=== PATIENT | female | born 1990 | race Caucasian/White ===

== ENCOUNTER 2020-06-11 18:08 | Emergency (ER) | payer SELFPAY ==
--- NOTE | ~2020-06-11 | XR_ITS ---
XR chest 1V portable DATE: 06/11/2020 18:38 INDICATION: Cough, fever, shortness of breath TECHNIQUE: Portable AP chest on 06/21/2020 at 1832 hours COMPARISON: 10/03 PA and lateral chest FINDINGS: Normal heart size. No hilar or mediastinal enlargement. No pulmonary infiltrate or consolidation, pleural effusion, pulmonary vascular congestion or pneumoth orax. IMPRESSION: No active cardiopulmonary disease Reviewed, dictated and finalized at location A. [employer] SERV[employer] ASSISTANT
[2020-06-11 18:13] VITALS: BP 141/83; PULSE 108; RESP 18; TEMP 36.7; O2SAT 100
--- NOTE | 2020-06-11 18:22 | ECG_ITS ---
Measurements Intervals [place] Rate: 91 P: 41 MN: 140 QRS: 28 QRSD: 86 T: 31 QT: 337 QTc: 417 Interpretive Statements SINUS RHYTHM BASELINE ARTIFACT- I, II, III, AVR, AVL, AVF, V1-V3 NORMAL ECG Electronically Signed On 06-11-2020 20:07:52 [employer] PLATER by Hammad Lawler D.O.
[2020-06-11 18:51] LABS: Basophils Percent Auto 0.4 % (0.2-1.2); Eosinophils Absolute Auto 0.2 K/mm3 (0-0.3); Eosinophils Percent Auto 2.7 % (0-4.4); Hematocrit 36.1 % (37.0-47.0); Hemoglobin 11.4 g/dL (12.0-15.0); Immature Granulocyte Absolute 0.02 K/mm3 (0.00-0.031); Immature Granulocyte Percent A 0.3 % (0-0.5); Lymphocytes Absolute Auto 2.01 K/mm3 (0.9-3.2); Mean Corpuscular HGB Conc 31.6 g/dl (32-36); Mean Corpuscular Volume 72.8 fl (80-100); Monocytes Absolute Auto 0.7 K/mm3 (0.1-0.6); Monocytes Percent Auto 9.7 % (2.6-8.5); Neutrophils Absolute Auto 3.8 K/mm3 (1.3-6.7); Neutrophils Percent Auto 56.9 % (45.5-73.1); Platelet Count Result 357 k/mm3 (150-375); Red Blood Count 4.96 M/mm3 (4.2-5.4); Red Cell Distribution Width 14.9 % (11.5-14.5); White Blood Count 6.7 K/mm3 (4.5-10.0)
--- NOTE | 2020-06-11 18:51 | ED.GENADULT ---
HPI - General Adult General Chief complaint: Unspecified Stated complaint: I Can't Breath Family Has COVID Time Seen by Provider: 06/11/20 18:21 Source: patient Mode of arrival: ambulatory Limitations: no limitations History of Present Illness HPI narrative: Patient is a 29-year-old female who presents to emergency department with tightness of the chest with productive cough congestion rhinorrhea patient notes that she has multiple sick family members currently at home with Covid. Patient notes she has had some loose stools. Patient denies vomiting notes that she has had some fever Related Data Allergies Allergy/AdvReac Type Severity Reaction Status Date / Time nitrofurantoin Allergy Unknown swelling Verified 05/08/19 13:59 in hands and feet Sulfa (Sulfonamide Allergy Unknown Verified 10/27/17 15:56 Antibiotics) Review of Systems Review of Systems: All systems reviewed & are unremarkable except as noted in HPI and below PMFSH Social History Social History (Updated 06/11/20 @ 18:54 by Cristhian Gore PA-C) Smoking status: Never smoker Alcohol intake: current Exam Narrative: Exam Narrative: GENERAL: Well-appearing, well-nourished, and in no acute distress. HEAD: Normocephalic, atraumatic. EYES: PERRLA and EOMI. ENT: Nares clear, no rhinorrhea or epistaxis. Mucous membranes moist. NECK: Supple. No adenopathy or masses. CHEST: Clear to auscultation. No respiratory distress. No wheezes rales or rhonchi HEART: Regular rate and rhythm. No murmur heard. EXTREMITIES: Normal range of motion. No edema. SKIN: Warm, dry, no rash. NEURO: No focal deficits. Alert and oriented x3. PSYCH: Normal mood and affect. Course Course Emergency Course: Patient in the room aware of case findings treatment plan diagnosis will be tested for Covid no pneumonia normal vital signs advised to follow with primary care for Covid results and to self quarantine Vital Signs Vital signs: Vital Signs Temperature 98.0 F 06/11/20 18:13 Pulse Rate 108 H 06/11/20 18:13 Respiratory Rate 18 06/11/20 18:13 Blood Pressure 141/83 H 06/11/20 18:13 Pulse Oximetry 100 06/11/20 18:13 Temperature 98.0 F 06/11/20 18:13 Pulse Rate 108 H 06/11/20 18:13 Respiratory Rate 18 06/11/20 18:13 Blood Pressure 141/83 H 06/11/20 18:13 Pulse Oximetry 100 06/11/20 18:13 Medical Decision Making MDM Narrative Medical decision making narrative: Patient with upper respiratory symptoms consistent with COVID-19 advised to self quarantine until she has received her results from her primary care doctor and to self quarantine until she has received her results Vital Signs Vital Signs: Vital Signs Temperature 98.0 F 06/11/20 18:13 Pulse Rate 108 H 06/11/20 18:13 Respiratory Rate 18 06/11/20 18:13 Blood Pressure 141/83 H 06/11/20 18:13 Pulse Oximetry 100 06/11/20 18:13 Temperature 98.0 F 06/11/20 18:13 Pulse Rate 108 H 06/11/20 18:13 Respiratory Rate 18 06/11/20 18:13 Blood Pressure 141/83 H 06/11/20 18:13 Pulse Oximetry 100 06/11/20 18:13 Lab Data Result diagrams: 06/11/20 18:37 06/11/20 18:37 Labs: Lab Results 06/11/20 06/11/20 Range/Units 18:37 18:37 WBC Pending RBC Pending Hgb Pending Hct Pending MCV Pending MCH Pending MCHC Pending RDW Pending Plt Count Pending MPV Pending Immature Gran % (Auto) Pending Neut % (Auto) Pending Lymph % (Auto) Pending [place] % (Auto) Pending Eos % (Auto) Pending Baso % (Auto) Pending Lymph # (Auto) Pending [place] # (Auto) Pending Eos # (Auto) Pending Baso # (Auto) Pending Abs Immat Gran (auto) Pending Absolute Neuts (auto) Pending Absolute Nucleated RBC Pending Nucleated RBC % Pending Sodium Pending Potassium Pending Chloride Pending Carbon Dioxide Pending Anion Gap Pending BUN Pendi
[2020-06-11 19:04] LABS: Anion Gap 11 mmol/L (8-16); Blood Urea Nitrogen 7 mg/dL (7-17); Calcium 9.1 mg/dL (8.4-10.2); Carbon Dioxide 23 mmol/L (22-30); Chloride 106 mmol/L (98-107); Estimated CRCL calculation 121 ml/min; Estimated Glomerular Filt Rate > 60; Glucose 134 mg/dL (65-105); Potassium 3.8 mmol/L (3.4-5.0); Sodium 140 mmol/L (137-145)
[2020-06-11 19:42] VITALS: BP 115/81; PULSE 95; RESP 16; TEMP 36.8; O2SAT 100
== END 2020-06-11 19:43 | disposition home or self-care (01) ==
LOC: ANHED 19:09
PROVIDERS: Emergency Provider Emergency Medicine; PCP Family Medicine
DX: J06.9 Acute upper respiratory infection, unspecified (principal); Z20.828 Contact with and (suspected) exposure to other viral communicable diseases
CPT/HCPCS: 36415; 71045; 80048; 81025; 85025; 93005; 99284

== ENCOUNTER 2021-04-30 07:02 | Emergency (ER) | payer SELFPAY ==
--- NOTE | ~2021-04-30 | XR_ITS ---
EXAMINATION: XR chest 1V portable DATE: 04/30/2021 08:14 INDICATION: Shortness of breath. Possible COVID TECHNIQUE: frontal view of the chest was obtained. COMPARISON: Chest radiograph dated 06/11/2020 FINDINGS: The lungs remain clear with no focal airspace opacities, pulmonary edema, pleural effusion or pneumot horax. The cardiomediastinal silhouette is normal. Visualized bones and soft tissues are unremarkable . IMPRESSION: 1. Normal chest radiograph. Reviewed, dictated and finalized at location A. IMPRESSION: 1. Normal chest radiograph.
--- NOTE | 2021-04-30 07:16 | ED.URI ---
HPI - URI/Sore Throat General Chief Complaint: Upper Respiratory Infection Stated Complaint: COVID symptoms x 3 days Time Seen by Provider: 04/30/21 07:16 Source: patient Mode of arrival: ambulatory Limitations: no limitations History of Present Illness HPI Narrative: Patient is a 30-year-old previously healthy female who presents for evaluation of cough, right-sided chest pain, intermittent fever. Patient states she has felt unwell over the past 5 days. Patient reports chest pain that has been sharp and shooting in nature at times over the right chest without radiation to the back, jaw, neck, upper abdomen. No associated nausea or vomiting. She has had a dry cough without shortness of breath. No diaphoresis. She has had some low-grade fevers and myalgias. Patient son has been exposed to Covid at school, he is not on any quarantine protocol currently. No other sick contacts. Related Data Allergies Allergy/AdvReac Type Severity Reaction Status Date / Time nitrofurantoin Allergy Unknown swelling Verified 04/30/21 07:33 in hands and feet Sulfa (Sulfonamide Allergy Unknown Hives Verified 04/30/21 07:33 Antibiotics) Review of Systems Review of Systems: CONSTITUTIONAL: Reports fever and chills EYES: Denies visual changes, redness, or discharge. ENT: Reports rhinorrhea and congestion CARDIOVASCULAR: Reports right-sided chest pain RESPIRATORY: Reports cough GASTROINTESTINAL: Denies abdominal pain, nausea, vomiting, or diarrhea. GENITOURINARY: Denies dysuria or hematuria. SKIN: Denies rash or itching. MUSCULOSKELETAL: Denies back pain, joint pain, reports nonspecific myalgias NEUROLOGIC: Denies headache, numbness, or weakness. [facility] Social History Social History Smoking status: Never smoker Alcohol intake: current Exam Narrative: GENERAL: Awake, alert, conversant HEAD: Normocephalic, atraumatic. EYES: PERRLA and EOMI. ENT: Nares clear, no rhinorrhea or epistaxis. Mucous membranes moist. + Rhinorrhea NECK: Supple. CHEST: No respiratory distress, breathing even and non labored, lungs are clear to auscultation bilaterally HEART: Regular rate, sinus rhythm ABDOMEN:Non distended, non tender EXTREMITIES: Normal range of motion. No edema. No calf pain. SKIN: Warm, dry, no rash. NEURO:No focal deficits. Alert and oriented x3 Course Vital Signs Vital signs: Vital Signs Temperature 36.8 C 04/30/21 07:20 Pulse Rate 92 04/30/21 07:20 Respiratory Rate 20 04/30/21 07:20 Blood Pressure 120/90 04/30/21 07:20 Pulse Oximetry 97 04/30/21 07:20 Temperature 36.8 C 04/30/21 07:20 Pulse Rate 91 04/30/21 08:02 Respiratory Rate 19 04/30/21 08:02 Blood Pressure 120/90 04/30/21 07:20 Pulse Oximetry 97 04/30/21 07:20 MDM - URI/Sore Throat MDM Narrative Medical decision making narrative: Patient presented for evaluation of right-sided chest pain in the setting of viral symptoms with rhinorrhea, cough and congestion. Patient will be swabbed for Covid. Patient's EKG and labs are without significant high risk changes. Cardiac risk factors reviewed. Patient is felt low risk for ACS and reasonable for further risk stratification testing as an outpatient. Troponin is not elevated, given pain has been present over the past 4 days, I would suspect that if this were myocarditis or pericarditis this would be abnormal at this point. Pain was not sudden or maximal or onset without tearing or ripping quality. No other signs or symptoms to suggest aortic dissection. A low risk well's criteria is noted, PE is felt to be unlikely. Patient does not qualify for D-dimer based on PERC criteria. No tachycardia, hypoxia. Patient is not on control. No pneumonia seen on evaluation today. Oxygen are normal. Patient is felt to be a reasonable candidate for continued evaluation as an outpatient. Differential Diagnosis Differential diagnosis: Likely upp
[2021-04-30 07:20] VITALS: BP 120/90; PULSE 92; RESP 20; TEMP 36.8; O2SAT 97
--- NOTE | 2021-04-30 07:39 | ECG_ITS ---
Measurements Intervals [place] Rate: 65 P: 22 WI: 170 QRS: -5 QRSD: 86 T: -9 QT: 389 QTc: 406 Interpretive Statements SINUS RHYTHM WITH SINUS ARRHYTHMIA INCOMPLETE RIGHT BUNDLE BRANCH BLOCK LOW QRS VOLTAGE IN PRECORDIAL LEADS BORDERLINE T WAVE ABNORMALITY- INFERIOR LEADS BASELINE ARTIFACT- II, III, AVR, AVF, V1, V3-V6 BORDERLINE ECG Electronically Signed On 04-30-2021 12:08:51 CDT by Hammad Lawler D.O.
[2021-04-30 07:51] VITALS: PULSE 102; RESP 18
[2021-04-30] MEDS: ALBUTEROL SULFATE NEB 2.5 MG/0.5 ML INH 5 MG INHALATION (07:51)
[2021-04-30] MEDS: IPRATROPIUM BR 0.02% INH SOLN 0.5 MG/2.5 ML VIAL INHALATION (07:51)
[2021-04-30 08:02] VITALS: PULSE 91; RESP 19
[2021-04-30] MEDS: SODIUM CHLORIDE 0.9% IV 1,000 ML 999 ML IV CONT (08:02)
[2021-04-30] MEDS: ASPIRIN 81 MG CHEWABLE TABLET 324 MG PO (08:02)
[2021-04-30] MEDS: ACETAMINOPHEN 500 MG TABLET 1000 MG PO (08:07)
[2021-04-30 08:08] LABS: Basophils Absolute Auto 0.1 K/mm3 (0.0-0.1); Basophils Percent Auto 0.5 % (0.2-1.2); Eosinophils Absolute Auto 0.3 K/mm3 (0-0.3); Eosinophils Percent Auto 2.7 % (0-4.4); Hemoglobin 11.5 g/dL (12.0-15.0); Immature Granulocyte Absolute 0.05 K/mm3 (0.00-0.031); Immature Granulocyte Percent A 0.5 % (0-0.5); Lymphocytes Percent Auto 18.4 % (18.3-44.2); Mean Corpuscular HGB Conc 31.1 g/dl (32-36); Mean Corpuscular Hemoglobin 22.8 pg (26-34); Mean Corpuscular Volume 73.3 fl (80-100); Mean Platelet Volume 9.5 fl (7.4-10.4); Monocytes Absolute Auto 0.8 K/mm3 (0.1-0.6); Monocytes Percent Auto 6.9 % (2.6-8.5); Neutrophils Absolute Auto 7.7 K/mm3 (1.3-6.7); Platelet Count Result 344 k/mm3 (150-375); Red Blood Count 5.05 M/mm3 (4.2-5.4); Red Cell Distribution Width 15.9 % (11.5-14.5); White Blood Count 10.9 K/mm3 (4.5-10.0)
[2021-04-30] MEDS: ONDANSETRON INJ 4 MG/2 ML VIAL IV PUSH (08:08)
[2021-04-30 08:18] LABS: Alanine Aminotransferase 27 U/L (4-35); Albumin Level 4.7 g/dL (3.5-5.1); Alkaline Phosphatase 115 U/L (38-126); Anion Gap 13 mmol/L (8-16); Aspartate Amino Transferase 32 U/L (14-36); Bilirubin,Total 0.6 mg/dL (0.2-1.3); Blood Urea Nitrogen 9 mg/dL (7-17); Calcium 9.4 mg/dL (8.4-10.2); Carbon Dioxide 22 mmol/L (22-30); Chloride 106 mmol/L (98-107); Estimated CRCL calculation 108 ml/min; Estimated Glomerular Filt Rate > 60; Glucose 101 mg/dL (65-110); Prothrombin Time 12.8 Seconds (11.1-14.7); Sodium 141 mmol/L (137-145)
[2021-04-30 08:30] LABS: Troponin I < 0.012 ng/mL (0.000-0.034)
[2021-04-30 09:25] VITALS: BP 111/77; PULSE 79; RESP 18; O2SAT 98
[2021-05-01 01:27] LABS: SARS-CoV-2 RNA PCR Negative
== END 2021-04-30 09:21 | disposition home or self-care (01) ==
PROVIDERS: Emergency Provider Emergency Medicine; PCP Nurse Practitioner Family
DX: J06.9 Acute upper respiratory infection, unspecified (principal); Z20.822 Contact with and (suspected) exposure to COVID-19; I45.10 Unspecified right bundle-branch block; R94.31 Abnormal electrocardiogram [ECG] [EKG]
CPT/HCPCS: 36415; 71045; 80053; 84484; 85025; 85610; 85730; 93005; 94640; 96361; 96374; 99284; A9270; C9803; J2405; J7030; U0003; U0005

== ENCOUNTER 2023-03-19 17:30 | Emergency (ER) | payer OTHER, SELFPAY ==
[2023-03-19] VITALS (22 sets, daily range): BP systolic 123–140; BP diastolic 75–92; PULSE 82–116; RESP 14–26; TEMP 36.6–37.1; O2SAT 96–100
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
--- NOTE | ~2023-03-19 | XR_ITS ---
EXAM: XR wrist LT 2V DATE: 03/19/2023 18:55 HISTORY: post reduction Lt wrist . COMPARISON: Same date at 5:45 PM. FINDINGS/IMPRESSION: Overlying cast material obscures osseous detail. Increased lateral displacement of the distal left radial fracture of approximately one half shaft wid th, slightly decreased dorsal displacement, still greater than one half shaft width, and slightly dec reased dorsal angulation, now measuring 37 degrees. Increased distraction of the ulnar styloid fracture. Reviewed, dictated and finalized at location K.
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
[2023-03-19] MEDS: ONDANSETRON INJ 4 MG/2 ML VIAL IV PUSH (17:45)
[2023-03-19] MEDS: MORPHINE SULFATE (*CRX) 4 MG/ML INJ IV PUSH (17:45)
[2023-03-19] MEDS: LIDOCAINE HCL 1% LOCAL INJ 10 ML VIAL 5 ML INFILTRATE (18:21)
--- NOTE | 2023-03-19 18:37 | PC.NURSE ---
Dr. Helton and JEFFERSON Valero, at bedside to reduce L wrist. Verito at bedside to place sugar tong splint on after. Mom at bedside.
[2023-03-19] MEDS: HYDROmorphone HCL INJ (*CRX) 1 MG/ML SYR IV PUSH (18:41)
--- NOTE | 2023-03-19 20:05 | PC.NURSE ---
Dr. Helton and JEFFERSON Valero at bedside for fracture reduction. Time out performed at 2002. consent signed. Dr. Helton administered 80mg of Propofol IV at 2003.
[2023-03-19] MEDS: HYDROcodone/acetaminophen (*CRX) 5-325 MG TABLET 1 TAB PO (20:58)
[2023-03-19] MEDS: KETOROLAC 30 MG/ML VIAL (*BKC) IV PUSH (20:59)
== END 2023-03-19 21:25 | disposition home or self-care (01) ==
PROVIDERS: Emergency Provider Physician Assistant; PCP Nurse Practitioner Family
DX: S52.532A Colles' fracture of left radius, initial encounter for closed fracture (principal); S52.612A Displaced fracture of left ulna styloid process, initial encounter for closed fracture; V43.62XA Car passenger injured in collision with other type car in traffic accident, initial encounter
CPT/HCPCS: 25605; 25624; 73090; 73100; 73110; 96374; 96375; 99285; A4565; A9270; J1170; J1885; J2270; J2405

== ENCOUNTER 2023-03-23 03:19 | Day surgery (SDC) | payer OTHER, SELFPAY ==
--- NOTE | 2023-03-20 14:58 | PC.NURSE ---
Report to the Outpatient Waiting Room, entrance under the green pavilion located off [facility], at time _9:30AM on date __03/23/23 . Planned Procedure Time: __11:30AM . Time changes happen often and if your time is changed the preop area will call you the afternoon before. - You and your visitor will be asked to self-screen and do not enter if you have any COVID symptoms. - A mask is optional within the hospital at this time. Patients may have clear liquids (water, carbonated beverages, clear teas, apple juice) until 3 hours prior to surgery with a maximum of 20 ounces. - No food from midnight until time of surgery Take the following medications with a SIP of water the morning of surgery: ___ALBUTEROL INHALER NEEDED, HYDROCODONE NEEDED, ONDANSETRON NEEDED DO NOT STOP ANY OF YOUR OTHER PRESCRIPTION MEDICATIONS PRIOR TO SURGERY ?EXCEPT THE FOLLOWING Medications to discontinue per physician ___HOLD ALL NSAIDS(IBUPROFEN) NOW-03/23/23 Please no make-up, nail icelandic, hairspray, perfume, deodorant, or body powder the day of surgery. No jewelry (including any body piercings) or valuables the day of surgery, leave them at home. Please take a shower or bath the night before, or the morning of, surgery with an antibacterial soap. Wear comfortable, loose fitting clothing. Children are encouraged to wear pajamas. - Jewelry must be removed prior to entering the operating room. Rings and piercings that are not removed may be cut off. - The hospital will not accept responsibility for valuables. - Please leave all valuables, including medications, at home the day of surgery. If you are going home after surgery, a licensed auto driver must drive you home. - NO public transportation without another adult if you receive anesthesia. - We recommend that an adult stay with you for 24 hours following discharge. - We also recommend that you do not drive, make important decision, drink alcoholic beverages, or take any drugs that were not prescribed by your health care provider for at least 24 hours after your discharge time. Follow any additional instructions given to you from your surgeon. If you or anyone in your household have experienced Covid symptoms in the past week, please notify your surgeon or the nurse liaison at the phone number below for possible testing. Telephone instructions given to ___PATIENT and asked if any additional questions and then verbalized understanding. Patient advised to call surgeon office or pre surgery nurse liaison [phone] if any additional questions.
[2023-03-23] VITALS (10 sets, daily range): BP systolic 99–150; BP diastolic 66–94; PULSE 63–107; RESP 12–20; TEMP 36.2; O2SAT 96–99
--- NOTE | ~2023-03-23 | XR_ITS ---
EXAMINATION: XR surgery orthopedic DATE: 03/23/2023 12:59 INDICATION: ORIF left wrist fracture TECHNIQUE: 3 fluoroscopic images of the left wrist were obtained during procedure performed by Dr. Esteban pena. Radiologist was not present for the imaging or procedure. The amount of fluoroscopy time used during this procedure was 0.1 minutes. COMPARISON: 03/19/2023 FINDINGS: Interval reduction and internal fixation of the distal left radial fracture with volar T plate and sc rew fixation. Alignment appears near-anatomic. There is additional ulnar styloid avulsion fracture wh ich remains unfixed with no significant interval change in a 4 mm of residual distraction. No other f ractures identified. Joint spaces are normal. IMPRESSION: 1. Interval open reduction and volar T plate and screw internal fixation of a distal left radial frac ture now in near-anatomic alignment. 2. No significant change in 4 mm residual distraction of the unfixed ulnar styloid avulsion fracture. Reviewed, dictated and finalized at location A. IMPRESSION: 1. Interval open reduction and volar T plate and screw internal fixation of a d istal left radial fracture now in near-anatomic alignment. 2. No significant change in 4 mm residual distraction of the unfixed ulnar styl oid avulsion fracture.
--- NOTE | 2023-03-23 07:09 | WPDHPUPDATE1 ---
History and Physical Update Update Date/Time: 03/23/23 07:09 History and Physical has been reviewed, including an updated exam of the patient. There are NO changes in the patient's condition. Risks, benefits, and alternatives have been discussed and questions answered. Patient agrees to proceed with procedure.
[2023-03-23] MEDS: LACTATED RINGERS 1,000 ML 30 ML IV CONT ×2 (10:10→12:56)
[2023-03-23] MEDS: KETOROLAC 15 MG/ML VIAL (*BKC) IV PUSH (10:20)
[2023-03-23] MEDS: ONDANSETRON INJ 4 MG/2 ML VIAL IV PUSH (10:40)
[2023-03-23] MEDS: FAMOTIDINE 20 MG/2 ML VIAL IV PUSH (10:40)
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
[2023-03-23] MEDS: MIDAZOLAM HCL (*CRX) 2 MG/2 ML VIAL IV PUSH (11:15)
[2023-03-23] MEDS: ceFAZolin 2 GM/D5W 50 ML 2 GM/50 ML BAG IVPB (11:45)
[2023-03-23] MEDS: BUPivacaine HCL 0.5% 10 ML AMP INFILTRATE (12:12)
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
[2023-03-23] MEDS: fentaNYL CITRATE INJ (*CRX) 100 MCG/2 ML VIAL 25 MCG IV PUSH ×4 (13:39→13:56)
[2023-03-23] MEDS: oxyCODONE HCL (*CRX) 5 MG TAB IR PO (14:22)
== END 2023-03-23 15:12 | disposition home or self-care (01) ==
PROVIDERS: PCP Nurse Practitioner Family; Visit Provider Orthopaedic Surgery
PROC: (CPT 25575; principal; 2023-03-23 11:30)
DX: S52.592A Other fractures of lower end of left radius, initial encounter for closed fracture (principal); S52.612A Displaced fracture of left ulna styloid process, initial encounter for closed fracture; V49.9XXA Car occupant (driver) (passenger) injured in unspecified traffic accident, initial encounter; Z79.51 Long term (current) use of inhaled steroids; E66.9 Obesity, unspecified; Z68.30 Body mass index [BMI] 30.0-30.9, adult
CPT/HCPCS: 25609; 99199; A9270; C1713; J0690; J1170; J1885; J2250; J2405; J2704; J3010; J7120

== ENCOUNTER 2024-03-03 14:56 | Emergency (ER) | payer OTHER, MEDICAID, SELFPAY ==
--- NOTE | ~2024-03-03 | XR_ITS ---
XR chest 2V Ordering provider: Andrea Marie MD History: 33 years Female with . sob and hx of asthma . Comparison: April 30, 2021 FINDINGS: MEDIASTINUM: The cardiac silhouette is not enlarged. LUNGS: No infiltrates, effusions or pneumothorax. OTHER: No free air under the diaphragm. IMPRESSION: No acute cardiopulmonary pathology. Reviewed, dictated and finalized at location A.
--- NOTE | 2024-03-03 14:57 | ECG_ITS ---
Test Date: 2024-03-03 15:15:55 Measurements Intervals [place] Rate: 85 P: 47 HI: 156 QRS: 16 QRSD: 86 T: 19 QT: 359 QTc: 429 Interpretive Statements SINUS RHYTHM POSSIBLE LEFT ATRIAL ENLARGEMENT [-0.1mV P WAVE IN V1/V2] LOW QRS VOLTAGE IN THE PRECORDIAL LEADS BORDERLINE ECG No previous ECG available for comparison Electronically Signed On 03-04-2024 11:06:58 CDT by Filiberto Mullins M.D.
[2024-03-03 15:08] VITALS: BP 128/96; PULSE 93; RESP 20; TEMP 36.8; O2SAT 100
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
[2024-03-03 15:33] LABS: Basophils Percent Auto 0.4 % (0.2-1.2); Eosinophils Absolute Auto 0.1 K/mm3 (0-0.3); Hematocrit 37.9 % (37.0-47.0); Hemoglobin 12.2 g/dL (12.0-15.0); Immature Granulocyte Absolute 0.04 K/mm3 (0.00-0.031); Immature Granulocyte Percent A 0.4 % (0-0.5); Lymphocytes Absolute Auto 2.63 K/mm3 (0.9-3.2); Lymphocytes Percent Auto 25.2 % (18.3-44.2); Mean Corpuscular HGB Conc 32.2 g/dl (32-36); Mean Corpuscular Hemoglobin 24.4 pg (26-34); Mean Corpuscular Volume 75.6 fl (80-100); Mean Platelet Volume 10.3 fl (7.4-10.4); Monocytes Absolute Auto 0.6 K/mm3 (0.1-0.6); Monocytes Percent Auto 5.8 % (2.6-8.5); Neutrophils Percent Auto 67.2 % (45.5-73.1); Platelet Count Result 376 k/mm3 (150-375); Red Blood Count 5.01 M/mm3 (4.2-5.4); Red Cell Distribution Width 14.5 % (11.5-14.5); White Blood Count 10.4 K/mm3 (4.5-10.0)
[2024-03-03 15:44] LABS: Alanine Aminotransferase 25 U/L (6-35); Albumin Level 4.9 g/dL (3.5-5.1); Alkaline Phosphatase 90 U/L (38-126); Anion Gap 15 mmol/L (4-12); Aspartate Amino Transferase 28 U/L (14-36); Blood Urea Nitrogen 9 mg/dL (7-17); Calcium 9.6 mg/dL (8.4-10.2); Carbon Dioxide 21 mmol/L (22-30); Chloride 102 mmol/L (98-107); Estimated CRCL calculation 102 ml/min; Estimated Glomerular Filt Rate > 60; Glucose 125 mg/dL (65-110); Potassium 3.7 mmol/L (3.4-5.0); Sodium 138 mmol/L (137-145)
[2024-03-03 15:56] LABS: NT Pro B Type Natriuretic Pept 49 pg/mL (19.9-100); Troponin I < 0.012 ng/mL (0.000-0.034)
[2024-03-03 16:08] LABS: Influenza A QL RT-PCR Negative (Negative); Influenza B QL RT-PCR Negative (Negative); RSV RNA, RT-PCR Negative (Negative); SARS-CoV-2 RNA PCR Negative (Negative)
[2024-03-03] MEDS: diazePAM (*CRX) 5 MG TABLET PO (16:55)
[2024-03-03 17:14] VITALS: BP 131/94; PULSE 77; RESP 18; TEMP 36.6; O2SAT 99
== END 2024-03-03 17:20 | disposition home or self-care (01) ==
PROVIDERS: Emergency Medicine; Physician Assistant; Emergency Provider Emergency Medicine; PCP Nurse Practitioner Family
DX: F41.9 Anxiety disorder, unspecified (principal); Z20.822 Contact with and (suspected) exposure to COVID-19
CPT/HCPCS: 36415; 71046; 80053; 83880; 84484; 85025; 87637; 93005; 99284; A9270